=== PATIENT | female | born 1970 | race Caucasian/White ===

== ENCOUNTER 2020-11-22 23:00 | Emergency (ER) | payer MEDICAID, SELFPAY ==
[2020-11-22 23:15] VITALS: BP 139/84; PULSE 79; RESP 18; TEMP 37; O2SAT 98; BMI 27.6
--- NOTE | 2020-11-22 23:20 | XRR_ITS ---
PROCEDURE INFORMATION: Exam: XR Chest Exam date and time: 11/22/2020 11:20 PM Age: 50 years old Clinical indication: Fever TECHNIQUE: Imaging protocol: XR of the chest. Views: 1 view. COMPARISON: CR Chest 1 [place] [id number] 02/14/2018 7:03 PM FINDINGS: Lungs: Unremarkable. No consolidation. Pleural spaces: Unremarkable. No pleural effusion. No pneumothorax. Heart/Mediastinum: Unremarkable. No cardiomegaly. Bones/joints: Unremarkable. XR/XR chest 1V portable [id number] IMPRESSION: No acute findings.
--- NOTE | 2020-11-22 23:21 | W.ED.FEVER ---
HPI - Fever General: Chief Complaint: Fever Stated Complaint: FEVER Time Seen by Provider: 11/22/20 23:20 History of Present Illness: HPI Narrative: Patient is a 50-year-old female comes to the ED with a fever. Patient says her symptoms started on Saturday. She reports nasal congestion drainage as well as cough. She describes the cough is productive and she has yellow sputum. Patient also endorses having some episodes of chest pain over the weekend as well. She describes the pain as a burning sensation in the center of the chest. Says it lasts for couple minutes and then goes away. She says she had multiple episodes like this over the weekend. She denies any current chest pain here in the ED. Denies any known sick contacts or contact with COVID-19 patient. Associated symptoms: Reports chest pain ( episodic chest pain couple days ago, denies current chest pain.) and nasal congestion; Deny abdominal pain, flank pain, chills, diarrhea, dysuria, headache(s), nausea or vomiting Review of Systems Const: Reports: fever(s); Denies: chills or fatigue Eyes: Denies: change in vision or eye discomfort ENMT: Reports: nasal discharge and nasal congestion; Denies: throat pain or odynophagia Card: Reports: chest pain ( episodic chest pain couple days ago, denies current chest pain.); Denies: palpitations, edema, swelling of feet/ankles, dyspnea on exertion or orthopnea Resp: Reports: productive cough and change in phlegm color (Yellow); Denies: dyspnea or non-productive cough GI: Denies: abdominal pain, nausea, vomiting, diarrhea, constipation or hematochezia : Denies: flank pain, dysuria or hematuria Musc: Denies: neck pain, back pain or extremity swelling Skin/Breast: Denies: rash or new lesions Neuro: Denies: headache(s), numbness in extremities or weakness in extremities Physical Exam Const: COMMON NORMALS: no acute distress, patient oriented x3 and alert GENERAL APPEARANCE: cooperative and comfortable HENMT: COMMON NORMALS: normocephalic HEAD & SCALP: normocephalic MOUTH: Normal oral and palatal mucosa present THROAT: posterior oropharynx normal and uvula midline Neck/C-Spine: COMMON NORMALS: supple GENERAL: Yes normal visual inspection Chest: CHEST: Yes tenderness costochondral junction Resp: COMMON NORMALS: normal respiratory effort, No retractions, No use of accessory muscles and clear to auscultation bilaterally AUSCULTATION: clear to auscultation bilaterally Cardio: COMMON NORMALS: regular rate, regular rhythm, S1 normal heart sound present, S2 normal heart sound present, No gallops present (Cardio), No clicks present (Cardio), No murmurs present (Cardio) and Peripheral pulses 2+ throughout RATE: regular rate RHYTHM: regular rhythm HEART SOUNDS: S1 normal heart sound present and S2 normal heart sound present PERIPHERAL PULSES: Peripheral pulses 2+ throughout GI: COMMON NORMALS: Normal to inspection, nondistended, normoactive bowel sounds present, Soft to palpation, non-tender and no masses PALPATION: Yes Soft to palpation : COMMON NORMALS: Yes no CVA tenderness BLADDER/KIDNEY EXAM: Yes no CVA tenderness Back/Pelvis: COMMON NORMALS: no CVA tenderness Extremity: COMMON NORMALS: normal to inspection and no pedal edema Neuro: COMMON NORMALS: patient oriented x3 and moves all extremities SENSORIUM/ORIENTATION: Yes alert Skin: GENERAL SKIN EXAM: dry skin Course Vital Signs: Vital signs: Vital Signs Temperature 98.6 F 11/22/20 23:15 Pulse Rate 78 11/23/20 00:36 Respiratory Rate 18 11/23/20 00:36 Blood Pressure 127/81 11/23/20 00:36 Pulse Oximetry 99 11/23/20 00:36 MDM - Fever MDM Narrative: Medical decision making narrative: Patient is a 50-year-old female comes to the ED with upper respiratory symptoms. She also reports some episodic chest pain over the weekend but denies any current chest pain. Vitals stable. Patient appears nontoxic and is in no acute distress or pain. Lungs clear to auscultation bilaterally. CBC and CMP, UA are unremarkable. COVID-19 testing is pending. EKG showed normal sinus rhythm with no ST segment elevation or depression seen. Baseline troponin 6. Chest x-ray showed no acute findings. Patient was diagnosed with noncardiac chest pain and upper respiratory infection. Patient was discharged home and told to self quarantine until COVID-19 test results are back. I told patient to call [facility] to get the COVID-19 test results tomorrow. Return to ED precautions given. Follow-up with PCP in 7 to 10 days reevaluation. Patient is to agree with plan. Lab Data: Attestation: I reviewed the patient's lab results. Labs: Lab Results 11/22/20 11/22/20 11/22/20 Range/Units 23:40 23:40 23:40 WBC 9.2 (4.0-10.0) 10^3/ uL RBC 4.68 (4.1-5.3) 10^6/u L Hgb 14.7 (11.5-15.3) g/dL Hct 44.3 (37.0-47.0) % MCV 94.7 (81-99) fL MCH 31.4 (28.0-34.0) pg MCHC 33.2 (30.0-36.0) g/dL RDW 13.2 (12.1-15.1) % Plt Count 320 (130-400) 10^3/c mm MPV 10.3 (7.4-10.4) fL Neut % (Auto) 53.7 % Lymph % (Auto) 36.3 % [place] % (Auto) 7.7 % Eos % (Auto) 1.4 % Baso % (Auto) 0.7 % Neut # (Auto) 4.92 (1.8-7.7) 10^3/u L Lymph # (Auto) 3.3 (0.8-4.8) 10^3/u L [place] # (Auto) 0.7 (0.2-0.9) 10^3/u L Eos # (Auto) 0.1 (0.0-0.8) 10^3/u L Baso # (Auto) 0.1 (0.0-0.1) 10^3/u L Nucleated RBC % (a uto) 0 % Nucleated RBCs # 0.0 /100WBC Sodium 137 (136-145) mmol/L Potassium 4.0 (3.5-5.1) mmol/L Chloride 101 (98-107) mmol/L Carbon Dioxide 25 (22-29) mmol/L Anion Gap 15.0 (5-19) BUN 7 (6-20) mg/dL Creatinine 0.7 (0.5-0.9) mg/dL GFR Calculation 88.2 L (90-130) mL/min Glucose 98 (65-115) mg/dL Calculated Osmolal ity 282 L (285-295) mOsm/k g Calcium 8.9 (8.5-10.5) mg/dL Total Bilirubin 0.3 (0.15-1.2) mg/dL AST 26 (0-32) U/L ALT 40 H (0-33) U/L Alkaline Phosphata se 88 (35-105) IU/L Troponin T Baselin e 6 (0-10) ng/L Total Protein 7.5 (6.6-8.7) g/dL Albumin 4.7 (3.5-5.2) g/dL Globulin 2.8 (1.3-4.6) g/dL Urine Color (Yellow) Urine Appearance (CLEAR) Urine pH (5-7) Ur Specific Gravit y (1.005-1.030) Urine Protein (Negative) Urine Glucose (UA) (Normal) Urine Ketones (Negative) Urine Blood (Negative) Urine Nitrate (Negative) Urine Bilirubin (Negative) Urine Urobilinogen (Negative) mg/dL Ur Leukocyte Bina ase (Negative) Urine RBC (0-2) /hpf Urine WBC (0-5) /hpf Ur Squamous Epith Cells (0-5) /hpf Amorphous Sediment Urine Bacteria (NONE) /hpf 11/23/ Range/Units 00:20 WBC (4.0-10.0) 10^3/ uL RBC (4.1-5.3) 10^6/u L Hgb (11.5-15.3) g/dL Hct (37.0-47.0) % MCV (81-99) fL MCH (28.0-34.0) pg MCHC (30.0-36.0) g/dL RDW (12.1-15.1) % Plt Count (130-400) 10^3/c mm MPV (7.4-10.4) fL Neut % (Auto) % Lymph % (Auto) % [place] % (Auto) % Eos % (Auto) % Baso % (Auto) % Neut # (Auto) (1.8-7.7) 10^3/u L Lymph # (Auto) (0.8-4.8) 10^3/u L [place] # (Auto) (0.2-0.9) 10^3/u L Eos # (Auto) (0.0-0.8) 10^3/u L Baso # (Auto) (0.0-0.1) 10^3/u L Nucleated RBC % (a uto) % Nucleated RBCs # /100WBC Sodium (136-145) mmol/L Potassium (3.5-5.1) mmol/L Chloride (98-107) mmol/L Carbon Dioxide (22-29) mmol/L Anion Gap (5-19) BUN (6-20) mg/dL Creatinine (0.5-0.9) mg/dL GFR Calculation (90-130) mL/min Glucose (65-115) mg/dL Calculated Osmolal ity (285-295) mOsm/k g Calcium (8.5-10.5) mg/dL Total Bilirubin (0.15-1.2) mg/dL AST (0-32) U/L ALT (0-33) U/L Alkaline Phosphata se (35-105) IU/L Troponin T Baselin e (0-10) ng/L Total Protein (6.6-8.7) g/dL Albumin (3.5-5.2) g/dL Globulin (1.3-4.6) g/dL Urine Color Yellow (Yellow) Urine Appearance Clear (CLEAR) Urine pH 5 (5-7) Ur Specific Gravit y 1.005 (1.005-1.030) Urine Protein Neg (Negative) Urine Glucose (UA) Norm (Normal) Urine Ketones Negative (Negative) Urine Blood Neg (Negative) Urine Nitrate Negative (Negative) Urine Bilirubin Neg (Negative) Urine Urobilinogen Norm (Negative) mg/dL Ur Leukocyte Bina ase Negative (Negative) Urine RBC 0-4 H (0-2) /hpf Urine WBC 0-4 H (0-5) /hpf Ur Squamous Epith Cells 0-4 H (0-5) /hpf Amorphous Sediment Not Reportable Urine Bacteria Trace (NONE) /hpf Imaging Data^: CXR: Attestation: I personally reviewed and interpreted this imaging study as follows: Radiologist's impression: [address] [address] XRay Report Signed Patient: Dory Jordan Unit #: [id number] : 1970 Age/Sex: 50 / F ADM Date: 11/22/20 Loc: ER Room/Bed: Attending Dr: Ordering Provider/Ordering MD: Gilberto Harmon Date of Service: 11/22/20 Procedure(s): XR chest 1V portable [id number] Accession Number(s): [id number] Report Number: [id number] PROCEDURE INFORMATION: Exam: XR Chest Exam date and time: 11/22/2020 11:20 PM Age: 50 years old Clinical indication: Fever TECHNIQUE: Imaging protocol: XR of the chest. Views: 1 view. COMPARISON: CR Chest 1 [place] [id number] 02/14/2018 7:03 PM FINDINGS: Lungs: Unremarkable. No consolidation. Pleural spaces: Unremarkable. No pleural effusion. No pneumothorax. Heart/Mediastinum: Unremarkable. No cardiomegaly. Bones/joints: Unremarkable. XR/XR chest 1V portable [id number] IMPRESSION: No acute findings. Dictated By: Preston Marti Signed By: Preston Marti Signed Date/Time: 11/23/2020 DD/ 001 EKG Data^: EKG 1: Attestation: I personally reviewed and interpreted this EKG as follows: EKG interpretation date: 11/22/20 Interpretation: Normal sinus rhythm, 70 bpm, no ST segment elevation or depression seen. Discharge Plan Discharge Patient Disposition: Home Clinical Impression: Upper respiratory infection with cough and congestion, Non-cardiac chest pain Condition: Stable Prescriptions: No Action estradiol 1 mg tablet 1.5 mg PO DAILY 90 Days Qty: 120 RF: 0 Discharge Orders: Discharge ED (Routine); Ordered 11/23/20 Ordered By: Gilberto Harmon Referrals: Ludy Lundberg FNP [Primary Care Provider] - Discharge Diet: Regular Discharge Activity: Resume usual activity Patient Instructions: Upper Respiratory Infection (ED), Noncardiac Chest Pain (ED) Activity Restrictions/Additional Instructions: Follow-up with medical provider as directed in 7 to 10 days for reevaluation. Self quarantine for the next 7 days pending COVID-19 test results. Call [facility] tomorrow to find out COVID-19 test results. Continue taking home medications as prescribed. Take Tylenol as needed for fevers. Drink plenty of fluids and stay hydrated. Take [id number] nasal decongestants to help with symptoms. Return to the ER or your medical provider if condition worsens. Please read and understand discharge instructions. Thank you for choosing [facility] for your healthcare needs today. Please realize this is an emergency room and that we are providing you with a medical screening exam and this may not be complete and all inclusive of all the testing and or work up that you may need to determine your ailment or severity of your illness. It is very important that you follow up as instructed or that you return to the Emergency Department should you have concerns or if your condition changes or worsens in any way. Coding Level of Care Code ED Penetration Tester for Graciela Fwd Exam Comprehensive
[2020-11-22 23:52] LABS: Basophils # 0.1 10^3/uL (0.0-0.1); Basophils % 0.7 %; Eosinophils # 0.1 10^3/uL (0.0-0.8); Eosinophils % 1.4 %; Hematocrit 44.3 % (37.0-47.0); Hemoglobin 14.7 g/dL (11.5-15.3); Lymphocytes # 3.3 10^3/uL (0.8-4.8); Lymphocytes % 36.3 %; Mean Corpuscular HGB Conc 33.2 g/dL (30.0-36.0); Mean Corpuscular Hemoglobin 31.4 pg (28.0-34.0); Mean Corpuscular Volume 94.7 fL (81-99); Mean Platelet Volume 10.3 fL (7.4-10.4); Monocytes # 0.7 10^3/uL (0.2-0.9); Monocytes % 7.7 %; Neutrophils # 4.92 10^3/uL (1.8-7.7); Neutrophils % 53.7 %; Nucleated Red Blood Cells % 0 %; Platelet Count 320 10^3/cmm (130-400); Red Blood Count 4.68 10^6/uL (4.1-5.3); Red Cell Distribution Width 13.2 % (12.1-15.1); White Blood Count 9.2 10^3/uL (4.0-10.0)
[2020-11-23 00:09] LABS: Troponin(5th) Baseline 6 ng/L (0-10)
[2020-11-23 00:11] LABS: Alanine Aminotransferase 40 U/L (0-33); Albumin Level 4.7 g/dL (3.5-5.2); Alkaline Phosphatase 88 IU/L (35-105); Aspartate Amino Transferase 26 U/L (0-32); Blood Urea Nitrogen 7 mg/dL (6-20); Calcium 8.9 mg/dL (8.5-10.5); Carbon Dioxide 25 mmol/L (22-29); Chloride 101 mmol/L (98-107); Globulin 2.8 g/dL (1.3-4.6); Glomerular Filtration Rate 88.2 mL/min (90-130); Glucose 98 mg/dL (65-115); Osmolality Calculated 282 mOsm/kg (285-295); Sodium 137 mmol/L (136-145); Total Bilirubin 0.3 mg/dL (0.15-1.2); Total Protein 7.5 g/dL (6.6-8.7)
[2020-11-23 00:36] VITALS: BP 127/81; PULSE 78; RESP 18; O2SAT 99
[2020-11-23 00:51] LABS: Bacteria Urine TRACE /hpf; Bilirubin Urine Neg (Negative); Blood Urine Neg (Negative); Glucose Urine UA Norm (Normal); Ketones Urine Negative (Negative); Leukocyte Esterase Urine Negative (Negative); Nitrate Urine Negative (Negative); Protein Urine Neg (Negative); RBC Urine 0-4 /hpf (0-2); Specific Gravity, Urine 1.005 (1.005-1.030); Squamous Epithelial Cell Urine 0-4 /hpf (0-5); Urine Appearance Clear (CLEAR); Urine Color Yellow (Yellow); Urobilinogen Urine Norm (Negative); WBC Urine 0-4 /hpf (0-5); pH Urine 5 (5-7)
[2020-11-23 13:53] LABS: Coronavirus Test Green County Not Detected
== END 2020-11-23 00:38 | disposition home or self-care (01) ==
PROVIDERS: Emergency Provider Physician Assistant; PCP Nurse Practitioner
DX: J06.9 Acute upper respiratory infection, unspecified (principal); R07.89 Other chest pain; Z20.822 Contact with and (suspected) exposure to COVID-19
CPT/HCPCS: 71045; 80053; 81001; 84484; 85025; 87635; 99283

== ENCOUNTER → 2021-02-24 09:38 | Outpatient (BNVA) | payer MEDICAID, SELFPAY | PROVIDERS: PCP Nurse Practitioner; Visit Provider Nurse Practitioner Family | DX: Z20.822 Contact with and (suspected) exposure to COVID-19 (principal); Z01.812 Encounter for preprocedural laboratory examination | CPT/HCPCS: 87426 ==

== ENCOUNTER 2021-12-07 12:43 | Outpatient (CLI) | payer MEDICAID, SELFPAY ==
--- NOTE | 2021-12-07 13:01 | MM_ITS ---
WS: [id number] Bilateral screening 3D tomosynthesis digital mammogram, 12/07/2021 Clinical Data: SCREENING Comparison: 11/09/2016. Findings: The breast parenchymal pattern shows fat replacement. No spiculated masses or clustered calcification s are seen. There are no secondary signs of carcinoma. There are lymph nodes in both axilla. MM/[place] [id number] Impression: 1. Negative bilateral mammogram unchanged. 2. Recommend annual screening mammograms. BIRADS: 1-Negative FOLLOW UP: 1 Year Follow-up The CAD tool design checker was used.
== END 2021-12-07 12:44 | disposition home or self-care (01) ==
LOC: RAD 12:44
PROVIDERS: PCP Physician Assistant; Visit Provider Physician Assistant
DX: Z12.31 Encounter for screening mammogram for malignant neoplasm of breast (principal)
CPT/HCPCS: 77063; 77067

== ENCOUNTER 2023-09-17 08:47 | Outpatient (CLI) | payer MEDICAID, SELFPAY ==
--- NOTE | 2023-09-17 08:53 | XR_ITS ---
WS: [id number] RIGHT HAND: 3 VIEW(S) TECHNIQUE: PA, oblique and lateral. HISTORY: Right thumb pain/swelling COMPARISON: None available. No acute fracture or dislocation. No soft tissue or bone abnormality. No significant osteoarthritis at the base of the first phalanx or metacarpal. IMPRESSION: Normal RIGHT hand. No abnormality noted in the RIGHT thumb.
== END 2023-09-17 08:48 | disposition home or self-care (01) ==
PROVIDERS: PCP Physician Assistant; Visit Provider Nurse Practitioner Family
DX: M79.644 Pain in right finger(s) (principal)
CPT/HCPCS: 73130

== ENCOUNTER 2024-01-09 23:54 | Emergency (ER) | payer MEDICAID, SELFPAY ==
[2024-01-09 23:59] VITALS: BP 152/91; PULSE 90; RESP 16; TEMP 36.6; O2SAT 96; BMI 28.0
[2024-01-10 00:58] VITALS: BP 138/67; PULSE 87; RESP 16; O2SAT 96
[2024-01-10 01:03] LABS: Bilirubin Urine Negative (Negative); Blood Urine Negative (Negative); Glucose Urine UA Negative (Normal); Ketones Urine Negative (Negative); Leukocyte Esterase Urine Negative (Negative); Nitrate Urine Negative (Negative); Protein Urine Negative (Negative); Specific Gravity, Urine 1.012 (1.005-1.030); Urine Appearance Clear (CLEAR); Urine Color Yellow (Yellow); Urobilinogen Urine 0.2 mg/dL (Negative)
--- NOTE | 2024-01-10 01:03 | ED_ITS ---
HPI - GI Bleed 2 General: Chief complaint: GI Bleed Stated complaint: rectal bleeding Time Seen by Provider: 01/10/24 00:01 History of Present Illness: 53-year-old female who presents to the e mergency room after having some bright red blood per rectum. She been having some low back pain. She is been constipated. She been taking laxatives. She had a small bowel movement and noticed blood in the toilet. No focal abdominal pain. No chest pain. No fevers. Related Data Home Medications Medication Instructions Recorded Confirmed levothyroxine 50 mcg capsule 50 mcg PO DAILY 03/07/21 09/17/23 pantoprazole 20 mg tablet,delayed 20 mg PO DAILY 03/07/21 09/17/23 release (Protonix) Previous Rx's Medication Instructions Recorded estradiol 1 mg tablet 1.5 mg (1.5 x 1 mg) PO DAILY 90 09/25/19 days #120 tabs glycerin (adult) 1 supp [place] DAILY PRN constipation 01/10/24 #12 ea polyethylene glycol 3350 17 17 g PO DAILY #510 grams 01/10/24 gram/dose oral powder (Miralax) Allergies Allergy/AdvReac Type Severity Reaction Status Date / Time egg Allergy hives Verified 09/17/23 08:24 tree nut Allergy na Verified 09/17/23 08:24 esomeprazole [From Nexium] AdvReac na Verified 09/17/23 08:24 Penicillins AdvReac na Verified 09/17/23 08:24 Review of Systems 2 Narrative: Constitutional symptoms: Negative except as documented in HPI. Skin symptoms: Negative except as documented in HPI. Eye symptoms: Negative except as documented in HPI. ENMT symptoms: Negative except as documented in HPI. Respiratory symptoms: Negative except as documented in HPI. Cardiovascular symptoms: Negative except as documented in HPI. Gastrointestinal symptoms: Negative except as documented in HPI. Genitourinary symptoms: Negative except as documented in HPI. Musculoskeletal symptoms: Negative except as documented in HPI. Neurologic symptoms: Negative except as documented in HPI. Psychiatric symptoms: Negative except as documented in HPI. Endocrine symptoms: Negative except as documented in HPI. PFSH ED 2 PFSH: Social History Smoking and tobacco/nicotine status: never used tobacco/nicotine Physical Exam 2 Narrative: EXAM NARRATIVE: General: Alert, no acute distress. Skin: Warm, dry. Head: Normocephalic, atraumatic. Neck: Supple, trachea midline. Eye: Extraocular movements are intact. Ears, nose, mouth and throat: mucosa moist. Cardiovascular: Regular, Normal peripheral perfusion. Respiratory: Lungs are clear to auscultation, respirations are non-labored, breath sounds are equal, Symmetrical chest wall expansion. Gastrointestinal: Soft, Nontender, Non distended Musculoskeletal: Normal ROM, no deformity. Neurological: Alert and oriented, No focal neurological deficit observed. Psychiatric: Cooperative, appropriate mood & affect. Course 2 Vital Signs: Vital signs: Vital Signs Temperature 97.9 F 01/09/24 23:59 Pulse Rate 80 01/10/24 01:31 Respiratory Rate 18 01/10/24 01:31 Blood Pressure 134/74 01/10/24 01:27 Pulse Oximetry 96 01/10/24 01:31 Oxygen Delivery Me thod Room Air 01/09/24 23:59 MDM - GI Bleed Medical Decision Making Medical decision making: Differential diagnosis including but not limited to and based on the above HPI, review of systems and physical exam: Rectal bleeding. Possible diverticular bleed versus internal hemorrhoids. She has been having some constipation so an x-ray was ordered to evaluate this. Basic lab work including a CBC. Orders placed to evaluate differential diagnosis based on the above differential, HPI and physical exam Acute abdominal series: chest x-ray: No acute process. No obvious infiltrates. No pneumothorax. No cardiomegaly. This was reviewed and interpreted by myself the emergency room physician Abdomen x-ray: Nonspecific bowel gas pattern. No evidence of free air or obstruction. This was reviewed and interpreted by myself the emergency room physician. Lab Review: Laboratory results were reviewed and interpreted by myself the emergency room physician. Lab work is fairly unremarkable. No leukocytosis. No anemia. No renal failure. Urine is clear. I reviewed the patient's medical record. Reexamination: Patient remained stable. No increased work of breathing. No altered mental status. No focal motor deficits. Assessment and plan: Rectal bleeding Constipation Dehydration ?Fluids and magnesium citrate in the emergency room. - Discharged home - Discussed findings and plan with patient. Answered any questions. - All laboratory values were reviewed and interpreted personally by myself, the ER physician - All imaging was reviewed and interpreted personally by myself, the ER physician. - Evaluation and treatment of this problem were appropriate in the emergency setting Lab Data 01/10/24 01:20 01/10/24 00:52 Laboratory Results WBC 8.29 10^3/uL (3.29-11.43) 01/10/24 01:20 Corrected WBC Cancelled 01/10/24 00:52 RBC 4.20 10^6/uL (3.85-5.65) 01/10/24 01:20 Hgb 12.90 g/dL (11.27-16.99) 01/10/24 01:20 Hct 39.1 % (36-47) 01/10/24 01:20 MCV 93.1 fl (85-98) 01/10/24 01:20 MCH 30.7 pg (27-33) 01/10/24 01:20 MCHC 33.0 g/dL (30-55) 01/10/24 01:20 RDW 12.4 % (12.1-15.1) 01/10/24 01:20 Plt Count 262 10^3/cmm (157-399) 01/10/24 01:20 MPV 10.0 fL (7.4-10.4) 01/10/24 01:20 Gran % Cancelled 01/10/24 00:52 Neut % (Auto) 51.9 % 01/10/24 01:20 Lymph % (Auto) 36.3 % 01/10/24 01:20 [place] % (Auto) 8.3 % 01/10/24 01:20 Eos % (Auto) 2.3 % 01/10/24 01:20 Baso % (Auto) 1.0 % 01/10/24 01:20 Neut # (Auto) 4.30 10^3/uL (1.8-7.7) 01/10/24 01:20 Lymph # (Auto) 3.0 10^3/uL (0.8-4.8) 01/10/24 01:20 [place] # (Auto) 0.7 10^3/uL (0.2-0.9) 01/10/24 01:20 Eos # (Auto) 0.2 10^3/uL (0.0-0.8) 01/10/24 01:20 Baso # (Auto) 0.1 10^3/uL (0.0-0.1) 01/10/24 01:20 Absolute Gran (auto) Cancelled 01/10/24 00:52 Nucleated RBC % (auto) 0 % 01/10/24 01:20 Nucleated RBCs # 0.0 /100WBC 01/10/24 01:20 PT 12.00 SECONDS (12.1-14.9) L 01/10/24 00:52 INR 0.86 (0.8-1.2) 01/10/24 00:52 APTT 20.0 SECONDS (23.9-36.7) L 01/10/24 00:52 Sodium 137 mmol/L (136-145) 01/10/24 00:52 Potassium 4.0 mmol/L (3.5-5.1) 01/10/24 00:52 Chloride 102 mmol/L (98-107) 01/10/24 00:52 Carbon Dioxide 22 mmol/L (22-29) 01/10/24 00:52 Anion Gap 17.0 (5-19) 01/10/24 00:52 BUN 12 mg/dL (6-20) 01/10/24 00:52 Creatinine 0.7 mg/dL (0.5-0.9) 01/10/24 00:52 GFR Calculation 87.2 mL/min (90-130) L 01/10/24 00:52 Glucose 98 mg/dL (65-115) 01/10/24 00:52 Calculated Osmolality 284 mOsm/kg (285-295) L 01/10/24 00:52 Calcium 9.2 mg/dL (8.5-10.5) 01/10/24 00:52 Total Bilirubin 0.2 mg/dL (0.15-1.2) 01/10/24 00:52 AST 26 U/L (0-32) 01/10/24 00:52 ALT 38 U/L (0-33) H 01/10/24 00:52 Alkaline Phosphatase 62 U/L (35-105) 01/10/24 00:52 Total Protein 7.4 g/dL (6.6-8.7) 01/10/24 00:52 Albumin 4.6 g/dL (3.5-5.2) 01/10/24 00:52 Globulin 2.8 g/dL (1.3-4.6) 01/10/24 00:52 Urine Color Yellow (Yellow) 01/10/24 00:55 Urine Appearance Clear (CLEAR) 01/10/24 00:55 Urine pH 6.0 (5-7) 01/10/24 00:55 Ur Specific [place] 1.012 (1.005-1.030) 01/10/24 00:55 Urine Protein Negative (Negative) 01/10/24 00:55 Urine Glucose (UA) Negative (Normal) 01/10/24 00:55 Urine Ketones Negative (Negative) 01/10/24 00:55 Urine Blood Negative (Negative) 01/10/24 00:55 Urine Nitrate Negative (Negative) 01/10/24 00:55 Urine Bilirubin Negative (Negative) 01/10/24 00:55 Urine Urobilinogen 0.2 mg/dL (Negative) 01/10/24 00:55 Ur Leukocyte Esterase Negative (Negative) 01/10/24 00:55 Urine RBC 0-2 /hpf (0-2) 01/10/24 00:55 Urine WBC 0-5 /hpf (0-5) 01/10/24 00:55 Ur Squamous Epith Cells 6-10 /hpf (0-5) 01/10/24 00:55 Amorphous Sediment Not Reportable 01/10/24 00:55 Urine Bacteria None seen /hpf (NONE) 01/10/24 00:55 Hyaline Casts 0-4 /lpf H 01/10/24 00:55 XR interpretation done by ED provider, pending radiology final review Discharge Plan Discharge Patient Disposition: Home Clinical Impression: Hematochezia, Constipation, Dehydration Condition: Stable Prescriptions: New Miralax 17 gram/dose powder 17 g PO DAILY Qty: 510 0RF Rx Instructions: Take 1-2 scoops daily for the next 3 months to keep stools soft glycerin (adult) Suppository 1 supp [place] DAILY PRN (Reason: constipation) Qty: 12 0RF No Action pantoprazole [Protonix] 20 mg tablet,delayed release (DR/EC) 20 mg PO DAILY levothyroxine 50 mcg capsule 50 mcg PO DAILY estradiol 1 mg tablet 1.5 mg PO DAILY 90 Days Qty: 120 0RF Rx Instructions: refilling in Dr Lee absence Discharge Orders: Discharge ED (Routine); Ordered 01/10/24 Ordered By: Shani Cline Referrals: Shahida Hickey PA [Primary Care Provider] - Discharge Diet: Usual diet Discharge Activity: Increase activity as tolerated Patient Instructions: Constipation (ED), Rectal Bleeding (ED) Activity Restrictions/Additional Instructions: Thank you for choosing [facility] for your healthcare needs today. Please realize this is an emergency room and that we are providing you with a medical screening exam and this may not be complete and all inclusive of all the testing and or work up that you may need to determine your ailment or severity of your illness. You have been screened and evaluated and felt safe for discharge. Health conditions do change or evolve sometimes and as such it is important that you follow up with your Primary Doctor to be re checked, 3-5 days is a general good time frame for follow up. You are always welcome to return to the ED for re assessment if your symptoms are worsening or you have new concerns Coding Level of Care Code ED Olive Packer for Graciela Arellano
[2024-01-10 01:07] LABS: Bacteria Urine None Seen /hpf; Hyaline Casts Urine 0-4 /lpf; RBC Urine 0-2 /hpf (0-2); WBC Urine 0-5 /hpf (0-5)
--- NOTE | 2024-01-10 01:10 | XRR_ITS ---
PROCEDURE INFORMATION: Exam: XR Abdomen Exam date and time: 01/10/2024 1:23 AM Age: 53 years old Clinical indication: Abdominal pain; Additional info: Abd pain TECHNIQUE: Imaging protocol: Radiologic exam of the abdomen. Views: Frontal supine view of the abdomen. 1 View. COMPARISON: CR XR abdomen min 2V [id number] 06/22/2021 11:22 AM FINDINGS: Gastrointestinal tract: Normal. No bowel dilation. Bones/joints: Unremarkable. XR/XR abdomen 1V* [id number] IMPRESSION: No acute findings.
[2024-01-10 01:13] LABS: INR 0.86 (0.8-1.2)
[2024-01-10 01:22] LABS: Alanine Aminotransferase 38 U/L (0-33); Albumin Level 4.6 g/dL (3.5-5.2); Alkaline Phosphatase 62 U/L (35-105); Aspartate Amino Transferase 26 U/L (0-32); Blood Urea Nitrogen 12 mg/dL (6-20); Calcium 9.2 mg/dL (8.5-10.5); Carbon Dioxide 22 mmol/L (22-29); Chloride 102 mmol/L (98-107); Creatinine Clr Calc Pharmacy 91.1835; Globulin 2.8 g/dL (1.3-4.6); Glomerular Filtration Rate 87.2 mL/min (90-130); Glucose 98 mg/dL (65-115); Osmolality Calculated 284 mOsm/kg (285-295); Sodium 137 mmol/L (136-145); Total Bilirubin 0.2 mg/dL (0.15-1.2); Total Protein 7.4 g/dL (6.6-8.7)
[2024-01-10 01:27] VITALS: BP 134/74; PULSE 83; RESP 16; O2SAT 95
[2024-01-10 01:27] LABS: Basophils # 0.1 10^3/uL (0.0-0.1); Eosinophils # 0.2 10^3/uL (0.0-0.8); Eosinophils % 2.3 %; Hematocrit 39.1 % (36-47); Lymphocytes % 36.3 %; Mean Corpuscular Hemoglobin 30.7 pg (27-33); Mean Corpuscular Volume 93.1 fl (85-98); Monocytes # 0.7 10^3/uL (0.2-0.9); Monocytes % 8.3 %; Neutrophils % 51.9 %; Nucleated Red Blood Cells % 0 %; Platelet Count 262 10^3/cmm (157-399); Red Cell Distribution Width 12.4 % (12.1-15.1); White Blood Count 8.29 10^3/uL (3.29-11.43)
[2024-01-10 01:31] VITALS: PULSE 80; RESP 18; O2SAT 96
[2024-01-10] MEDS: sodium chloride 0.9% 1,000 ML 999 ML IV (01:47)
[2024-01-10] MEDS: magnesium citrate Btl 296 mL PO (01:47)
[2024-01-10 02:30] VITALS: BP 134/74; PULSE 72; RESP 15; O2SAT 99
== END 2024-01-10 02:49 | disposition home or self-care (01) ==
PROVIDERS: Emergency Provider Emergency Medicine; PCP Physician Assistant
DX: K92.1 Melena (principal); K59.00 Constipation, unspecified; E86.0 Dehydration
CPT/HCPCS: 74018; 80053; 81001; 85025; 85610; 85730; 99284; J7030

== ENCOUNTER → 2024-09-22 14:36 | Outpatient (BNVA) | payer MEDICAID, SELFPAY | PROVIDERS: PCP Physician Assistant; Visit Provider Nurse Practitioner Family | DX: L29.9 Pruritus, unspecified (principal); L81.0 Postinflammatory hyperpigmentation; L57.8 Other skin changes due to chronic exposure to nonionizing radiation; L81.4 Other melanin hyperpigmentation; X32.XXXA Exposure to sunlight, initial encounter; L65.9 Nonscarring hair loss, unspecified | CPT/HCPCS: 11104; 99204 ==

== ENCOUNTER → 2024-10-06 10:45 | Outpatient (BNVA) | payer MEDICAID, SELFPAY | PROVIDERS: PCP Physician Assistant; Visit Provider Nurse Practitioner Family | DX: F42.4 Excoriation (skin-picking) disorder (principal); R23.8 Other skin changes; R20.9 Unspecified disturbances of skin sensation; F63.3 Trichotillomania | CPT/HCPCS: 99214 ==

== ENCOUNTER 2024-12-24 07:57 | Outpatient (CLI) | payer MEDICAID, SELFPAY ==
--- NOTE | 2024-12-24 08:06 | CT_ITS ---
WS: [id number] CT ABDOMEN AND PELVIS WITH CONTRAST HISTORY: GENERALIZED ABDOMINAL MASS/PELVIC SWELLING,MASS, LUMP TECHNIQUE: Imaging performed of the abdomen and pelvis with IV contrast. Single phase imaging of the abdomen. Coronal and sagittal reformats are submitted. All CT scans at [facility] use at least one of these dose optimization techniques: automated exposure control; mA and/or kV adjustment per patient size (includes targeted exams where dose is matched to clinical indication); or iterative reconstruction. IV CONTRAST: Omnipaque 350; 100 mL IV. Oral contrast: Yes. DLP: 304.53 mGy.cm COMPARISON: 05/30/2016, KUB 11/19/2024 Lower thorax: Lung bases are clear. Heart is normal size. No hiatal hernia. Liver/biliary system: Multiple hepatomegaly and hepatic steatosis. Normal portal vein. Gallbladder: Status post cholecystectomy. Pancreas: Normal size pancreas and pancreatic duct. No adjacent inflammation. Spleen: Normal size spleen. No mass or infarct. Adrenal glands: Normal. Right kidney: Normal. Left kidney: Normal. Aorta: Normal. Lymphadenopathy: None. Free fluid: None. GI tract: Stomach is markedly distended with oral contrast. There is also contrast in the small bowel. No mass or obstruction is identified. Diffuse moderate constipation. Prior appendectomy. No GI tract obstruction. Abdominal wall: Unremarkable abdominal wall. No hernia. Pelvis: No free fluid or adenopathy within the pelvis. Prior hysterectomy. Bones: Unremarkable. CT/CT abdomen pelvis w con* [id number] IMPRESSION: 1. No pelvic mass identified. Findings on the recent KUB were probably related to a small bowel loop. 2. No adenopathy or free fluid. 3. Mild hepatic steatosis and hepatomegaly. 4. Prior cholecystectomy. 5. Prior appendectomy. 6. Moderate diffuse constipation.
[2024-12-24] MEDS: iohexol 350 mg/mL 500 mL Btl (per mL) PO (08:55)
[2024-12-24] MEDS: iohexol 350 mg/mL 500 mL Btl (per mL) IV (09:09)
== END 2024-12-24 07:58 | disposition home or self-care (01) ==
PROVIDERS: PCP Physician Assistant; Visit Provider Physician Assistant
DX: R19.07 Generalized intra-abdominal and pelvic swelling, mass and lump (principal); Z90.49 Acquired absence of other specified parts of digestive tract
CPT/HCPCS: 74177